=== PATIENT | female | born 1950 | race Caucasian/White ===

== ENCOUNTER 2019-10-15 14:02 | Outpatient (CLI) | payer MEDICARE | END 2019-10-15 23:59 | disposition home or self-care (01) | LOC: ROC 14:02 | PROVIDERS: ATTEND Radiology Radiation Oncology | DX: C53.0 Malignant neoplasm of endocervix (principal) | CPT/HCPCS: 99214; G0463 ==

== ENCOUNTER → 2019-11-06 | Outpatient (CLI) | payer MEDICARE ==
[~2019-11-06] MED LIST: ASCO100T5 PO; BIOT800T PO; CHOL10003 PO; CYAN100T2 PO; MAGN400T36 PO; OXYC-302 PO; POTA10TA17 PO; SUMA100T4 PO
== END | disposition home or self-care (01) ==
LOC: RAD 11:09
PROVIDERS: ATTEND Specialist
DX: C53.9 Malignant neoplasm of cervix uteri, unspecified (principal)
CPT/HCPCS: 36573; C1751

== ENCOUNTER 2019-11-26 07:26 | Outpatient (CLI) | payer MEDICARE ==
[2019-11-26] MEDS ORDERED: SODIUM CHLORIDE 0.9%, 500ML ONE (12:00)
[2019-11-26] MEDS ORDERED: MIDAZOLAM 1 MG/ML, 5ML ONE (12:00)
[2019-11-26] MEDS ORDERED: FENTANYL PF 100 MCG/2ML ONE (12:00)
[2019-12-05] MEDS ORDERED: CIPR500T3 PO (15:29)
== END 2019-11-26 23:59 | disposition home or self-care (01) ==
LOC: ROC 07:26
PROVIDERS: ATTEND Radiology Radiation Oncology
DX: Z02.9 Encounter for administrative examinations, unspecified (principal)
CPT/HCPCS: J2250; J3010; J7040

== ENCOUNTER 2020-01-28 07:33 | Outpatient (CLI) | payer MEDICARE ==
[~2020-01-28 07:33] MED LIST changes: +CIPR500T3 PO
== END 2020-01-28 23:59 | disposition home or self-care (01) ==
LOC: ROC 07:33
PROVIDERS: ATTEND Radiology Radiation Oncology
DX: C53.9 Malignant neoplasm of cervix uteri, unspecified (principal)
CPT/HCPCS: G2012

== ENCOUNTER 2020-04-13 08:16 | Outpatient (CLI) | payer MEDICARE ==
[~2020-04-13 08:16] MED LIST changes: -CYAN100T2 PO; +CYAN100T22 PO
== END 2020-04-13 23:59 | disposition home or self-care (01) ==
LOC: ROC 08:16
PROVIDERS: ATTEND Radiology Radiation Oncology
DX: C53.9 Malignant neoplasm of cervix uteri, unspecified (principal)
CPT/HCPCS: 99212; G0463

== ENCOUNTER 2020-09-22 07:42 | Outpatient (CLI) | payer MEDICARE ==
[~2020-09-22 07:42] MED LIST changes: -CIPR500T3 PO; +CIPR500T4 PO; -OXYC-302 PO; +OXYC1TAB14 PO
== END 2020-09-22 23:59 | disposition home or self-care (01) ==
LOC: ROC 07:42
PROVIDERS: ATTEND Radiology Radiation Oncology
DX: C53.9 Malignant neoplasm of cervix uteri, unspecified (principal)
CPT/HCPCS: 99212; G0463